=== PATIENT | female | born 1950 | race African-American/Black ===

== ENCOUNTER 2016-02-27 20:54 | Emergency (ER) | payer OTHER ==
[~2016-02-27 20:54] MED LIST: AMLO5TAB22 PO; ASPI81 PO; CORE25TA PO; GABA600T PO; GLUCTAB PO; INSU100V3 SQ; ISOS30 PO; LEVEMIR SC; LEVO125T3 PO; LEVO137T2 PO; LISI-587 PO; MORP30SU PO; MOTI25CH PO; NITR0.4S SL; NOVORP2 SQ; OMPR20CCR PO
[2016-02-27 20:57] VITALS: BP 128/66; PULSE 78; RESP 16; TEMP 98.3; O2SAT 97
== END 2016-02-27 21:50 | disposition left against medical advice (07) ==
LOC: NED 20:54
DX: R10.9 Unspecified abdominal pain (principal)
CPT/HCPCS: 99281

== ENCOUNTER 2017-03-30 01:41 | Emergency (ER) | payer OTHER ==
[~2017-03-30] VITALS: Ht 170.2 cm; Wt 88.0 kg
[2017-03-30 01:46] VITALS: BP 112/69; PULSE 103; RESP 20; TEMP 99.4; O2SAT 95
[2017-03-30] MEDS ORDERED: ATOR40TA16 PO (02:22)
[2017-03-30] MEDS ORDERED: LISI20TA3 PO (02:22)
[2017-03-30] MEDS ORDERED: AMLO5TAB2 PO (02:22)
[2017-03-30] MEDS ORDERED: GABA800T PO (02:22)
[2017-03-30] MEDS ORDERED: ASPI-516 CHEW (02:22)
[2017-03-30] MEDS ORDERED: FENT50T T-DERMAL (02:22)
[2017-03-30] MEDS ORDERED: FLUO40CA PO (02:22)
[2017-03-30] MEDS ORDERED: BACL10TA PO (02:22)
[2017-03-30] MEDS ORDERED: GLIP10TA6 PO (02:22)
[2017-03-30] MEDS ORDERED: ISOS20TA PO (02:22)
[2017-03-30] MEDS ORDERED: LEVEMIR SQ (02:22)
[2017-03-30] MEDS ORDERED: OMEP40CA2 (02:22)
[2017-03-30] MEDS ORDERED: NOVORP2 SQ (02:22)
[2017-03-30] MEDS ORDERED: MECL-62 PO (02:22)
[2017-03-30] MEDS ORDERED: MORP1TAB24 PO (02:22)
--- NOTE | 2017-03-30 03:14 | RADRPT ---
EXAM DATE/TIME: 03/30/2017 02:56 [place] COMPARISON: No previous studies available for comparison. INDICATIONS : Left foot pain after falling. MEDICAL HISTORY : None. SURGICAL HISTORY : None. ENCOUNTER: Initial ACUITY: 1 day PAIN SCORE: 5/10 LOCATION: Left foot FINDINGS: Bone density is normal. A transverse fracture through the base of the fifth metatarsal is noted. 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 CONCLUSION: Fifth metatarsal fracture. Drew Bautista MD on March 30, 2017 at 3:11 Board Certified Radiologist. This report was verified electronically.
[2017-03-30] MEDS ORDERED: IBUPROFEN SUSP 100 MG/5 ML UDC PO ONE (03:30)
--- NOTE | 2017-03-30 03:31 | PD ---
HPI Chief Complaint: Musculoskeletal Complaint Time Seen by Provider: 02:45 Travel History International Travel<30 days: No Contact w/Intl Traveler<30days: No Traveled to known affect area: No History of Present Illness HPI 66-year-old female presents to the emergency department by private transportation for complaint of left foot and ankle pain. Patient states approximately 8 PM last evening while going down a step she misstepped and injured her foot. Patient denies other injury. Patient did not fall to the ground did not hit her head did not have loss of consciousness did not injure her neck back chest abdomen pelvis or other extremities. Patient is noted marked swelling of the foot. Patient has severe pain of the foot. Patient takes morphine and fentanyl on a regular basis for her chronic pain syndrome associated with chronic low back pain. Patient denies other concerns or complaints. PFSH Past Medical History Narrative Medical Chronic pain syndrome anxiety depression dyslipidemia chest pain CAD diabetes hypertension GERD no tobacco use nursing notes reviewed Hx Anticoagulant Therapy: Yes (Baby aspirin daily) Arthritis: Yes (BACK PAIN DUE TO DAMAGED DISCS) Autoimmune Disease: No Blood Disorders: No Anxiety: Yes Depression: Yes Heart Rhythm Problems: No Cancer: No Cardiovascular Problems: Yes High Cholesterol: Yes Chemotherapy: No Chest Pain: Yes Congestive Heart Failure: No Coronary Artery Disease: Yes Diabetes: Yes Patient Takes Glucophage: No Diminished Hearing: No Endocrine: Yes Gastrointestinal Disorders: Yes GERD: Yes Glaucoma: No Headaches: Yes Hepatitis: Yes Hiatal Hernia: No Hypertension: Yes Immune Disorder: No Kidney Stones: No Medical other: Yes Musculoskeletal: Yes (CHRONIC BACK PAIN) Neurologic: Yes Psychiatric: Yes Reproductive: No Respiratory: No Immunizations Current: Yes Myocardial Infarction: No Radiation Therapy: No Renal Failure: No Seizures: No Thyroid Disease: Yes Ulcer: Yes PNEUMOCCOCAL Vaccine (Year): 2 ?: Not Menopausal: Yes : 4 Para: 4 Tubal Ligation: Yes Past Surgical History Abdominal Surgery: Yes AICD: No Appendectomy: No Arteriovenous Shunt: No Cardiac Surgery: Yes Cholecystectomy: No Coronary Artery Bypass Graft: Yes (2001) Ear Surgery: No Endocrine Surgery: No Eye Surgery: No Genitourinary Surgery: No Gynecologic Surgery: Yes Insulin Pump: No Joint Replacement: No Neurologic Surgery: No Oral Surgery: No Pacemaker: No Thoracic Surgery: Yes Other Surgery: Yes Social History Alcohol Use: No Tobacco Use: No Substance Use: No Allergies-Medications (Allergen,Severity, Reaction): Coded Allergies: carisoprodol (Unverified Adverse Reaction, Mild, headache, 03/30/17) Reported Meds & Prescriptions Reported Meds & Active Scripts Active Reported Novolin R Inj (Insulin Human Regular) 1,000 Unit/10 Ml Vial 40 Units SQ Levemir Inj (Insulin Detemir) 1,000 unit/ 10 ML Vial 90 Units SQ HS Do not mix with any other Insulin. Duragesic (Fentanyl) 50 Mcg/Hour Patch.td72 50 Mcg T-DERMAL EVERY 72 HRS Baclofen 10 Mg Tab 10 Mg PO Q8HR Fluoxetine (Fluoxetine HCl) 40 Mg Cap 40 Cap PO DAILY Lisinopril-Hctz 20-25 Mg Tab 1 Tab PO DAILY Morphine ER (Morphine Sulfate) 15 Mg Tab 15 Mg PO Q8H Omeprazole 40 Mg Cap 40 Mg DAILY Gabapentin 800 Mg Tab 800 Mg PO TID Aspirin 81 Mg Chew 81 Mg CHEW DAILY Meclizine (Meclizine HCl) 25 Mg Tab 25 Mg PO TID PRN Atorvastatin (Atorvastatin Calcium) 40 Mg Tab 40 Mg PO HS Glipizide 10 Mg Tab 10 Mg PO DAILY Take 30 minutes before a meal Amlodipine (Amlodipine Besylate) 5 Mg Tab 5 Mg PO DAILY Isosorbide Mononitrate 20 Mg Tab 30 Mg PO BID Take 2 doses 7 hours apart. Review of Systems Except as stated in HPI: all other systems reviewed are Neg Physical Exam Narrative GENERAL: Well-developed well-nourished female in no acute distress or respiratory distress SKIN: Warm and dry. HEAD: Normocephalic. EYES: No scleral icterus. No injection or drainage. NECK: Supple, trachea midline. No JVD or lymphadenopathy. CARDIOVASCULAR: Regular rate and rhythm without murmurs, gallops, or rubs. RESPIRATORY: Breath sounds equal bilaterally. No accessory muscle use. GASTROINTESTINAL: Abdomen soft, non-tender, nondistended. MUSCULOSKELETAL: No cyanosis, or edema. Attention left lower extremity dorsal aspect of left foot with soft tissue swelling and tenderness to palpation especially over the base of the fifth metatarsal distally foot is neurovascular tendon intact and patient has intact range of motion of the left ankle although it induces pain in the left foot BACK: Nontender without obvious deformity. No CVA tenderness. Data Data Last Documented VS Vital Signs Date Time Temp Pulse Resp B/P (MAP) Pulse Ox O2 Delivery O2 Flow Rate FiO2 03/30/17 01:46 99.4 103 20 112/69 (83) 95 Orders Orders Foot, Complete (Xvr8col) (03/30/17 ) Splint Or Brace Apply/Monitor (03/30/17 03:23) Ibuprofen Liq (Motrin Liq) (03/30/17 03:30) Ice/Cold Pack (03/30/17 03:23) Ed Discharge Order (03/30/17 03:26) Ibuprofen (Motrin) (03/30/17 03:45) MDM Medical Decision Making Medical Screen Exam Complete: Yes Emergency Medical Condition: Yes Medical Record Reviewed: Yes Interpretation(s) X-ray left foot: Fracture of the fifth metatarsal base Differential Diagnosis Sprain strain fracture Narrative Course Imaging study ordered X-ray consistent with fracture of the fifth metatarsal base posterior splint applied patient will be given prescription for walker and for wheelchair as she is not an optimal candidate for use of crutches and will be referred to on-call podiatry as well as offered information for on-call orthopedist Diagnosis Primary Impression: Foot fracture, left Additional Impression: Metatarsal bone fracture Referrals: Orthopedist call for appointment On-call orthopedist Dr. Wolf Hvac Project Engineer 1 day Call office to schedule appointment on-call physician is Patient Instructions: General Instructions Additional Instructions: Use walker and wheelchair for transportation purposes Follow-up with podiatry/orthopedics regarding foot fracture Continue current medications as chronically prescribed May use [id number] ibuprofen/Advil/Motrin 600 mg as often as every 6 hours up to a maximum of 800 mg every 8 hours as tolerated for pain associated with inflammation Use ice pack intermittently to area of soft tissue swelling for the first 12-24 hours Return to the emergency department for any concerns or change in condition Med/Other Pt SpecificInfo: No Change to Meds Scripts Walker with Front Wheels (Walker with Front Wheels) 1 Mis Mis EA .XX DIRECTED, #1 0 Refills Prov: Jazmine Ivey MD 03/30/17 Wheelchair Elevated Leg (Wheelchair Elevated Leg) 1 Mis Mis EA .XX DIRECTED, #1 0 Refills Prov: Jazmine Ivey MD 03/30/17 Disposition: 01 DISCHARGE HOME Condition: Stable Jazmine Ivey MD Mar 30, 2017 03:31
[2017-03-30] MEDS ORDERED: IBUPROFEN 800 MG TAB PO ONE (03:45)
[2017-03-30] MEDS ORDERED: WALKER WHEELS/F1 MIS (03:50)
[2017-03-30] MEDS ORDERED: WHEEMIS3 (03:50)
[2017-03-30 04:11] VITALS: BP 118/60
== END 2017-03-30 04:14 | disposition home or self-care (01) ==
LOC: PHED 01:41
DX: S92.352A Displaced fracture of fifth metatarsal bone, left foot, initial encounter for closed fracture (principal); X58.XXXA Exposure to other specified factors, initial encounter; G89.4 Chronic pain syndrome; F41.8 Other specified anxiety disorders; E78.5 Hyperlipidemia, unspecified; I25.10 Atherosclerotic heart disease of native coronary artery without angina pectoris; E11.9 Type 2 diabetes mellitus without complications; I10 Essential (primary) hypertension; K21.9 Gastro-esophageal reflux disease without esophagitis; E07.9 Disorder of thyroid, unspecified; Z79.4 Long term (current) use of insulin
CPT/HCPCS: 29515; 73630